=== PATIENT | female | born 2000 | race Caucasian/White ===

== ENCOUNTER 2024-05-22 23:02 | Emergency (ER) | payer SELFPAY ==
[2024-05-22 23:32] VITALS: BP 111/63; PULSE 79; TEMP 37; O2SAT 100; BMI 27.6
--- NOTE | 2024-05-23 | ED.GENADUL1 ---
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 She is right-hand dominant. She states that recently she has been having to work 7 days a week and at her job she has to lift a lot of heavy steel. 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 She left work today due to the pain in her shoulders. She believes she is overworked at this time. She denies any chest pain or shortness of breath. She has no weakness numbness or tingling. She has pain when she tries to raise her arms over her head. She denies any falls or recent injuries. Related Data Home Medications ?Medication ?Instructions ?Recorded ?Confirmed No Known Home Medications 05/22/24 05/22/24 Allergies Allergy/AdvReac Type Severity Reaction Status Date / Time No Known Drug Allergies Allergy Verified 05/22/24 23:35 Opioid HPI Opioid Management Most Recent Opioid Data: No Data to Display Review of Systems ROS Status of ROS 10 or more systems reviewed and unremarkable except as noted in history and below Exam Narrative Exam Narrative: Vital signs and Nursing Notes reviewed: Patient is afebrile with a normal pulse, normal blood pressure, she is not hypoxic with pulse ox of 100% on room air General: Awake, alert, oriented, no acute distress, mildly tearful at times otherwise appears comfortable HEENT: Normocephalic atraumatic, mucous membranes are moist and pink, eyes are clear, normal conjunctiva, vision is grossly intact Neck: Supple, no meningeal signs, no midline bony vertebral tenderness or step-off, there is tenderness at the insertion of the posterior belly of the sternocleidomastoid and along the distribution of the sternocleidomastoid, right greater than left. Muscle spasm and tenderness is appreciated in this area. Chest: Lungs are clear to auscultation with good air entry, there is no wheezing rhonchi or rales appreciated no accessory muscle use, patient is speaking in complete sentences-no chest wall tenderness to palpation CVS: Regular rate and rhythm S1-S2, no murmurs rubs or gallops, pulses are brisk and equal bilaterally Extremities: Moving all extremities, patient has pain with movement of her arms over her head. Rn Surgical Pcu strength is intact, pulses are brisk and equal. There is tenderness with muscle spasm in the sternocleidomastoid muscles, right greater than left. Skin: Normal in appearance without rash,pallor, petechiae or purpura Neuro: No focal deficits Constitutional Vital Signs, click to edit/add: Last Vital Signs Temp 98.6 F 05/22/24 23:32 Pulse 79 05/22/24 23:32 Resp 16 05/22/24 23:32 BP 111/63 05/22/24 23:32 Pulse Ox 100 05/22/24 23:32 O2 Del Method Room Air 05/22/24 23:32 Course Vital Signs Vital signs: Vital Signs Temperature 98.6 F 05/22/24 23:32 Pulse Rate 79 05/22/24 23:32 Respiratory Rate 16 05/22/24 23:32 Blood Pressure 111/63 05/22/24 23:32 Pulse Oximetry 100 05/22/24 23:32 Oxygen Delivery Method Room Air 05/22/24 23:32 Temperature 98.6 F 05/22/24 23:32 Pulse Rate 79 05/22/24 23:32 Respiratory Rate 16 05/22/24 23:32 Blood Pressure 111/63 05/22/24 23:32 Pulse Oximetry 100 05/22/24 23:32 Oxygen Delivery Method Room Air 05/22/24 23:32 Medical Decision Making MDM Narrative Medical decision making narrative: This otherwise healthy 23-year-old female presents for evaluation of burning pain in her upper shoulder areas. She is right-hand dominant and the pain in the right shoulder radiates down into her right elbow area. 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 She feels that her symptoms are related to overuse. She denies any injury. She has somewhat decreased range of motion and tenderness at the posterior belly of the sternocleidomastoid and its insertion into the scalp. She does not have any neck pain or tenderness. Pulses are brisk and equal. I agree that her symptoms are likely an overuse syndrome. She requested a note for work for the next 2 days. She was medicated emergency department with a dose of Toradol and will be discharged home with a prescription for 600 mg ibuprofen and Flexeril. She was encouraged drink plenty of fluids, do gentle range of motion stretching and I suggested massage and/or chiropractic medicine if her symptoms continue. Discharge Plan Discharge Chief Complaint: Extremity Injury, Upper Clinical Impression: Shoulder strain, Overuse syndrome Patient Disposition: Home, Self-Care Time of Disposition Decision: 23:58 Condition: Good Prescriptions / Home Meds: No Action No Known Home Medications Print Language: Syrian Instructions: Muscle Strain (ED) Additional Instructions: Rest, drink plenty of fluids, use ibuprofen and Flexeril as needed for your discomfort. Consider massage or chiropractic manipulation for ongoing symptoms. Referrals: Physician,Non-Staff, MD [Primary Care Provider] - 1 week
[2024-05-23] MEDS: KETOROLAC TROMETHAMINE 60 MG/2 ML VIAL IM (00:12)
[2024-05-23] MEDS: ORPHENADRINE CITRATE 100 MG TABLET.ER PO (00:12)
== END 2024-05-23 00:19 | disposition home or self-care (01) ==
PROVIDERS: Emergency Provider Emergency Medicine
DX: S46.911A Strain of unspecified muscle, fascia and tendon at shoulder and upper arm level, right arm, initial encounter (principal); S46.912A Strain of unspecified muscle, fascia and tendon at shoulder and upper arm level, left arm, initial encounter; X50.9XXA Other and unspecified overexertion or strenuous movements or postures, initial encounter
CPT/HCPCS: 96372; 99284; J1885